=== PATIENT | male | born 1955 | race Caucasian/White ===

== ENCOUNTER 2023-08-13 08:15 | Outpatient (RCR) | payer MEDICARE, OTHER, SELFPAY ==
--- NOTE | 2023-07-27 17:12 | OPREHPOC ---
Outpatient Therapy Plan of Care This is a Multidisciplinary Plan of Care that may contain components documented by all disciplines (PT, OT, and ST.) PT Problem 1 PT Problem #1 Knowledge Deficit PT Goal 1 Goal [place] with HEP Target Visit 4 PT Goal 1 Goal Patient will improve darryl hip abduction ROM to 40 degrees to reduce hip mobility restriction and force on lumbar spine Target Visit 8 PT Goal 2 Goal Patient will improve 6 minute walk test to 1500 feet to improve endurance and reduce pain with mobility Target Visit 8 PT Problem 3 PT Problem #3 Impaired Strength PT Goal 1 Goal Improve darryl hip abduction strength to 4/5 to improve lateral stability of pelvis with walking and ADLs Target Visit 8
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
--- NOTE | 2023-09-14 07:47 | PTOPDC ---
Assessment and note entered by Niranjan Nguyen, PT Evaluation Information Assessment Status Discharge - Pt Not Present Diagnosis Low Back Pain Onset 2+ years Subjective Information Patient contacted clinic stating that he will be having a procedure on his back and will hold of on therapy for the time being. Assessment PT Clinical Summary Patient was present for 6 visits of skilled therapy the last of which being on 08/13/23. Patient self discharged at this time secondary to reports of lumbar procedure. Plan of Care PT Services Indicated Yes
== END 2023-09-14 11:58 | disposition home or self-care (01) ==
LOC: ANHPT 08:15
DX: M54.50 Low back pain, unspecified (principal)
CPT/HCPCS: 97110; 97140; 97161